=== PATIENT | male | born 1950 | race Caucasian/White ===

== ENCOUNTER 2016-10-23 12:45 | Emergency (ER) | payer SELFPAY ==
[2016-10-23] MEDS ORDERED: Ibuprofen TAB* 600 MG PO ONE (13:19)
[2016-10-23 13:22] VITALS: BP 153/79
--- NOTE | 2016-10-23 14:23 | RAD ---
Indication: Crush injury of the right hand. 4 views of the right hand demonstrates no definite fracture. No radiopaque foreign body is noted. Flexion deformity of the proximal interphalangeal joint of the fifth digit is noted. Correlation to site of injury should be considered. IMPRESSION: Flexion deformity fifth proximal interphalangeal joint without definite fracture or radiopaque foreign body.
[2016-10-23] MEDS ORDERED: Tetan/Diph/Pertus SYR(Tdap)* 0.5 ML SYR(BOOSTRIX) use SYR IM ONE (15:07)
[2016-10-23] MEDS ORDERED: Lidocaine 1% INJ* 10 MG/ML 30 ML SDV INJ ONE (15:08)
[2016-10-23] MEDS ORDERED: Lidocaine 1%* 5 ML VIAL INJ ONE (15:17)
[2016-10-23] MEDS ORDERED: Lidocaine 2% PF * 5 ML VIAL INJ ONE (15:24)
--- NOTE | 2016-10-23 17:02 | UC ---
Laceration HPI - HPI Summary HPI Summary: AT 11:30AM ROCK FELL ON RIGHT HAND, LACERATION TO RIGHT HAND. LAST TETANUS SHOT >6YRS AGO. - History Of Current Complaint Chief Complaint: UCLaceration Stated Complaint: HAND LAC Time Seen by Provider: 10/23/16 14:51 Hx Obtained From: Patient Laceration Location: Hand - RIGHT Mechanism Of Injury: Blunt Trauma Onset/Duration: Lasting Hours, Still Present Severity: Moderate Pain Intensity: 0 Pain Scale Used: 0-10 Numeric Aggravating Factors: Movement Related History: Dominant Hand Left - Allergies/Home Medications Allergies/Adverse Reactions: Allergies Allergy/AdvReac Type Severity Reaction Status Date / Time No Known Allergies Allergy Verified 10/23/16 13:16 PMH/Surg Hx/FS Hx/Imm Hx Previously Healthy: Yes - Surgical History Surgical History: Yes Surgery Procedure, Year, and Place: HERNIA REPAIR. COLONOSCOPY WITH POLYP REMOVAL. TONSILECTOMY - Family History Known Family History: Positive: Hypertension Negative: Cardiac Disease, Diabetes - Social History Occupation: Employed Part-time, Retired Lives: With Family Alcohol Use: None Substance Use Type: None Smoking Status (MU): Former Smoker Amount Used/How Often: 1 PPD Have You Smoked in the Last Year: No When Did the Patient Quit Smoking/Using Tobacco: QUIT 25 YEARS AGO - Immunization History Most Recent Influenza Vaccination: not recently Most Recent Tetanus Shot: UTD Review of Systems Constitutional: Negative Skin: Other - LACERATION RIGHT HAND Eyes: Negative ENT: Negative Respiratory: Negative Cardiovascular: Negative Gastrointestinal: Negative Genitourinary: Negative Motor: Negative Neurovascular: Negative Musculoskeletal: Negative Neurological: Negative Psychological: Negative All Other Systems Reviewed And Are Negative: Yes Physical Exam Triage Information Reviewed: Yes Appearance: Well-Appearing, No Pain Distress, Well-Nourished Vital Signs: Initial Vital Signs Temp 99.3 F 10/23/16 13:17 Pulse 64 10/23/16 13:17 Resp 16 10/23/16 13:17 BP 153/79 10/23/16 13:17 Pulse Ox 98 10/23/16 13:17 Vital Signs Reviewed: Yes Eye Exam: Normal ENT Exam: Normal ENT: Positive: Normal ENT inspection, TMs normal Dental Exam: Normal Neck exam: Normal Neck: Positive: Supple, Nontender, No Lymphadenopathy Respiratory Exam: Normal Respiratory: Positive: Chest non-tender, Lungs clear, Normal breath sounds, No respiratory distress, No accessory muscle use Cardiovascular Exam: Normal Cardiovascular: Positive: RRR, No Murmur, Pulses Normal Abdominal Exam: Normal Musculoskeletal Exam: Normal Musculoskeletal: Positive: Strength Intact, ROM Intact, No Edema, Other: - 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 Neurological Exam: Normal Psychological Exam: Normal Skin Exam: Normal Laceration Repair - Laceration Repair 1 Description: Irregular Laceration Size After Repair: Length (cm) - 4, Width (mm) - 40, Depth (mm) - 5 Type Injection: Local Anesthesia Used: 2.0% Lido Cleansing Completed Via Routine Prep: Yes Irrigation With Pressure Irrigation Device: Yes Closure Material: Sutures Closure Method: Single Layer - 7 X 4-0 PROLENE Suture Of: Skin, SQ Suture Type: Prolene Laceration Course/Dx - Differential Dx - Laceration/Wound Differental Diagnoses: Abrasion, Fracture, Joint Space Violation, Joint Infection Provider Diagnoses: LACERATION RIGHT HAND Discharge - Discharge Plan Condition: Stable Disposition: HOME Patient Education Materials: Care For Your Stitches (ED), Laceration (ED) Forms: *Work Release Referrals: King Freitas MD [Primary Care Provider] - Additional Instructions: PLEASE RETURN TO HAVE SUTURES REMOVED IN TEN DAYS
== END 2016-10-23 15:58 | disposition home or self-care (01) ==
LOC: UCEAST 12:45
DX: S61.411A Laceration without foreign body of right hand, initial encounter (principal); W26.8XXA Contact with other sharp object(s), not elsewhere classified, initial encounter; Z23 Encounter for immunization
CPT/HCPCS: 12002; 90471; 90715; 99212; A9270-GY; G0463; J2001

== ENCOUNTER 2017-04-05 08:01 | Day surgery (SDC) | payer MEDICARE ==
[~2017-04-05 08:01] MED LIST: Buffered Lidocaine 0.9% SYRIN* 5 ML/SYR SYRINGE INTRADERM ONE; ceFAZolin 2 GM PREMIX (*) 2 GM/50 ML BAG IVPB ONE
[2017-04-05] MEDS ORDERED: Bupivacaine 0.25% SDV* 30 ML ONE (09:54)
[2017-04-05] MEDS ORDERED: fentaNYL* 50 MCG/ML 2 ML VIAL (100 MCG VIAL) ONE ×2 (10:25→11:37)
[2017-04-05] MEDS ORDERED: Midazolam* 1 MG/ML 2 ML VIAL (2 MG) ONE ×2 (10:25→11:18)
[2017-04-05] MEDS ORDERED: Propofol* 10 MG/ML 20 ML BTL IV PUSH ONE (11:40)
[2017-04-05 12:16] VITALS: BP 106/68
== END 2017-04-05 12:30 | disposition home or self-care (01) ==
LOC: OREAST 08:01
PROVIDERS: ATTEND Plastic Surgery
DX: M72.0 Palmar fascial fibromatosis [Dupuytren] (principal); I10 Essential (primary) hypertension; Z87.891 Personal history of nicotine dependence
CPT/HCPCS: 88304; J0690; J2250; J2704; J3010